=== PATIENT | male | born 1970 | race Caucasian/White ===

== ENCOUNTER 2023-03-10 23:26 | Emergency (ER) | payer SELFPAY ==
[~2023-03-10] VITALS: Ht 165.1 cm; Wt 74.8 kg
[2023-03-10 23:37] VITALS: BP 106/67
--- NOTE | 2023-03-11 00:12 | NUR ---
PATIENT LEFT WITHOUT BEING SEEN BY DR. Ingram. NO FURTHER CARE PROVIDED FOR PATIENT.
--- NOTE | 2023-03-11 00:14 | NUR ---
PER ADMITTING PT STATED HE WAS LEAVING AND EXITED LOBBY [id number]
== END 2023-03-11 00:14 | disposition left against medical advice (07) ==
LOC: MED 23:26
DX: R10.31 Right lower quadrant pain (principal); Z53.21 Procedure and treatment not carried out due to patient leaving prior to being seen by health care provider
CPT/HCPCS: 99281